=== PATIENT | female | born 1965 | race African-American/Black ===

== ENCOUNTER 2019-06-06 21:12 | Emergency (ER) | payer BC ==
--- NOTE | 2019-06-06 21:58 | ER Document Report ---
ED Medical Screen (RME) - General Chief Complaint: Blood Pressure Problem Stated Complaint: BLOOD PRESSURE PROBLEMS Time Seen by Provider: 06/06/19 21:42 Notes: HPI: 54-year-old female with history of hypertension here for a headache for the last day. Not sudden in onset. Has had similar headaches before in the past. Not the worst headache of her life. States has had a headache like this before in the past when her blood pressure was elevated. she does take amlodipine and HCTZ for her blood pressure and states usually her blood pressure is controlled however today it was 200s systolic and that made her nervous so she came in for evaluation. She states she has been on vacation and had changes in diet and is unsure if that allocated for her elevated blood pressure. She is just here visiting from [place]. He denies prior history of [place] or CVA. She states she has intermittent spots in her vision and blurry vision that has been ongoing for several days. No chest pain, shortness of breath or other change in neurologic. She has not sought care until now. No blood thinners. No other complaints at this time. Has not taken anything for her symptoms. no increased stress. no ams. no trauma or injury. no photophobia or phonophobia. no neck pain or stiffness. ROS neg to include 10 systems, unless mentioned in the hpi. PE:>>>> PHYSICAL_EXAM: GENERAL_APPEARANCE: well_nourished, alert, cooperative, no_acute_distress, no_obvious_discomfort. pleasant, obese middle aged black female, smiling, speaking in full sentences, in no sign of pain or resp distress, VITALS: reviewed, see vital signs table. HEAD: no_swelling\tenderness on the head. normocephalic. atraumatic. no olson signs. no raccoons eyes. EYES: PERRL, EOMI, conjunctiva_clear. no nystagmus. no photophobia NOSE: no_nasal_discharge. MOUTH: (-)decreased moisture. THROAT: no_tonsilar_inflammation, no_airway_obstruction. no_lymphadenopathy NECK: supple, no_neck_tenderness, full rom. full strength. no meningeal signs. BACK: no_back_tenderness. CHEST_WALL: no_chest_tenderness. no overlying skin changes LUNGS: no_wheezing, ctab (-)accessory muscle use, good air exchange bilateral. HEART: normal_rate, normal_rhythm, EXTREMITIES: strength 5/5 in all_extremities, good pulses in all_extremities, no_swelling\tenderness in the extremities, no_edema. full rom. normal gait. good pulses. brisk cap refill. 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 neg ciera sign NEURO: motor and sensation intact, SKIN: warm, dry, good_color, no_rash. MENTAL_STATUS: speech_clear, oriented_X_3, normal_affect, responds_appropriately to questions. MDM: I have ordered labs and initial work-up and patient will be transferred to the main ER for further work-up. I have greeted and performed a rapid initial assessment of this patient. A comprehensive ED assessment and evaluation of the patient, analysis of test results and completion of medical decision making process will be conducted by an additional ED providers. Documentation achieved through voice recording which my lead to some occasional accidental typographical errors. Extensive efforts have been made to proof read documentation to make sure these are the least as possible Temp Pulse Resp BP Pulse Ox 06/06/19 21:25 98.6 F 83 18 173/82 H 94 Category Date Time Status EKG Documentation STAT Care 06/06/19 21:49 Ordered Visual Acuity (ED) NOW Care 06/06/19 21:49 Ordered CHEST 2 VIEWS [RAD] Stat Exams 06/06/19 21:49 Ordered CBC WITH DIFF [HEME] Stat Lab 06/06/19 21:48 Ordered COMPREHENSIVE METABOLIC PANEL [CHEM] Stat Lab 06/06/19 21:48 Ordered MAGNESIUM [CHEM] Stat Lab 06/06/19 21:48 Ordered TROPONIN I [CHEM] Stat Lab 06/06/19 21:48 Ordered URINALYSIS [URIN] Stat Lab 06/06/19 21:48 Uncollected EKG ER ONLY [ER] Stat Oth 06/06/19 21:48 Ordered TRAVEL OUTSIDE OF THE [place] IN LAST 30 DAYS: No - Related Data Allergies/Adverse Reactions: No Known Allergies Allergy (Unverified 06/06/19 21:25) Physical Exam - Vital signs Vitals: Temp Pulse Resp BP Pulse Ox 98.6 F 83 18 173/82 H 94 06/06/19 21:25 06/06/19 21:25 06/06/19 21:25 06/06/19 21:25 06/06/19 21:25 Course - Vital Signs Vital signs: Temp Pulse Resp BP Pulse Ox 98.6 F 83 18 173/82 H 94 06/06/19 21:25 06/06/19 21:25 06/06/19 21:25 06/06/19 21:25 06/06/19 21:25
[2019-06-06 22:30] LABS: APPEARANCE,URINE CLEAR; BILIRUBIN,URINE NEGATIVE (NEGATIVE); COLOR,URINE STRAW; GLUCOSE, URINE NEGATIVE (NEGATIVE); KETONES,URINE NEGATIVE (NEGATIVE); LEUKOCYTE ESTERASE,URINE NEGATIVE (NEGATIVE); NITRITE,URINE NEGATIVE (NEGATIVE); PROTEIN,URINE NEGATIVE (NEGATIVE); URINE SPECIFIC GRAVITY 1.004; UROBILINOGEN,URINE NEGATIVE mg/dL (<2.0)
--- NOTE | 2019-06-06 22:37 | RADIOLOGY REPORT (SQ) ---
EXAM DESCRIPTION: XR CHEST 2 VIEWS COMPLETED DATE/TME: 06/06/2019 21:49 CLINICAL HISTORY: 54 years Female, htn COMPARISON: None. NUMBER OF VIEWS/TECHNIQUE: 2, Frontal, Lateral FINDINGS: Adequate lung volume, clear parenchyma, normal cardiac silhouette, and intact bony thorax. IMPRESSION: No acute cardiopulmonary findings.
[2019-06-06 23:30] LABS: ABSOLUTE BASOPHILS # (AUTO) 0.1 10^3/uL (0.0-0.2); ABSOLUTE EOSINOPHILS # (AUTO) 0.2 10^3/uL (0.0-0.6); ABSOLUTE LYMPHOCYTES (AUTO) 2.2 10^3/uL (0.5-4.7); ABSOLUTE MONOCYTES (AUTO) 0.6 10^3/uL (0.1-1.4); ABSOLUTE NEUT (AUTO) 5.4 10^3/uL (1.7-8.2); BASOPHILS % (AUTO) 1.6 % (0-2); EOSINOPHILS % (AUTO) 2.4 % (0-6); HEMOGLOBIN 14.6 g/dL (12.0-15.5); LYMPHOCYTES % (AUTO) 25.8 % (13-45); MEAN CORPUSCULAR HEMOGLOBIN 26.3 pg (27.0-33.4); MEAN CORPUSCULAR HGB CONC 32.5 g/dL (32.0-36.0); MEAN CORPUSCULAR VOLUME 81 fl (80-97); MONOCYTES % (AUTO) 6.8 % (3-13); PLATELET COUNT 301 10^3/uL (150-450); RED BLOOD COUNT 5.56 10^6/uL (3.72-5.28); RED CELL DISTRIBUTION WIDTH 15.6 % (11.5-14.0); SEGMENTED NEUTROPHILS % (AUTO) 63.4 % (42-78); TOTAL CELLS COUNTED % (AUTO) 100 %; WHITE BLOOD COUNT 8.5 10^3/uL (4.0-10.5)
[2019-06-06 23:37] LABS: ALBUMIN 4.3 g/dL (3.5-5.0); ALKALINE PHOSPHATASE 115 U/L (38-126); ANION GAP 12 (5-19); ASPARTATE AMINO TRANSFERASE 38 U/L (14-36); BILIRUBIN,DIRECT 0.3 mg/dL (0.0-0.4); BILIRUBIN,TOTAL 0.3 mg/dL (0.2-1.3); BLOOD UREA NITROGEN 11 mg/dL (7-20); CALCIUM 10.2 mg/dL (8.4-10.2); CARBON DIOXIDE 29 mmol/L (22-30); CHLORIDE 97 mmol/L (98-107); GLUCOSE 154 mg/dL (75-110); POTASSIUM 3.9 mmol/L (3.6-5.0); TOTAL PROTEIN 7.9 g/dL (6.3-8.2)
[2019-06-07 07:29] VITALS: BP 139/80
--- NOTE | 2019-06-07 10:21 | EKG REPORT ---
SEVERITY:- ABNORMAL ECG - SINUS RHYTHM PROBABLE LEFT ATRIAL ABNORMALITY PROBABLE LEFT VENTRICULAR HYPERTROPHY : Confirmed by: Colin Goode 07-Jun-2019 10:20:39
--- NOTE | 2019-06-08 10:39 | ER Document Report ---
Entered by JASSI PERKINS SCRIBE 06/07/19 0714 Acting as scribe for:RAMO DUGAN MD ED General - General Chief Complaint: Blood Pressure Problem Stated Complaint: BLOOD PRESSURE PROBLEMS Time Seen by Provider: 06/06/19 21:42 Notes: Patient is a 54-year-old female presenting to the emergency department complaining of hypertension. Patient states that she recorded her blood pressure at 230/134. Patient states that she has been drinking vinegar since she recorded it, she reported that to help try and alleviate the problem. Patient states that she is also experiencing nausea, vomiting, and headaches. Patient states that she is currently taking HCTZ patient denies experiencing any chest pain, or shortness of breath. Patient's blood pressure is back within normal limits. TRAVEL OUTSIDE OF THE [place] IN LAST 30 DAYS: No - Related Data Allergies/Adverse Reactions: No Known Allergies Allergy (Unverified 06/06/19 21:25) Past Medical History - General Information source: Patient - Social History Smoking Status: Never Smoker Cigarette use (# per day): No Chew tobacco use (# tins/day): No Frequency of alcohol use: 2-4 beers per night Drug Abuse: None Family History: Reviewed & Not Pertinent Patient has suicidal ideation: No Patient has homicidal ideation: No - Past Medical History Cardiac Medical History: Reports: Hx Hypercholesterolemia, Hx Hypertension Pulmonary Medical History: Reports: Hx Asthma Endocrine Medical History: Reports: Hx Diabetes Mellitus Type 2 Renal/ Medical History: Denies: Hx Peritoneal Dialysis Past Surgical History: Reports: Hx Section Review of Systems - Review of Systems Constitutional: No symptoms reported EENT: No symptoms reported Cardiovascular: No symptoms reported, Other - hypertension Respiratory: No symptoms reported Gastrointestinal: No symptoms reported Genitourinary: No symptoms reported Female Genitourinary: No symptoms reported Musculoskeletal: No symptoms reported Skin: No symptoms reported Hematologic/Lymphatic: No symptoms reported Neurological/Psychological: No symptoms reported -: Yes All other systems reviewed and negative Physical Exam - Vital signs Vitals: Temp Pulse Resp BP Pulse Ox 98.6 F 83 18 173/82 H 94 06/06/19 21:25 06/06/19 21:25 06/06/19 21:25 06/06/19 21:25 06/06/19 21:25 - Notes Notes: Physical Exam: General: Alert, appears well. HEENT: Normocephalic. Atraumatic. PERRL. Extraocular movements intact. Oropharynx clear. Neck: Supple. Non-tender. Respiratory: No respiratory distress. Clear and equal breath sounds bilaterally. Cardiovascular: Regular rate and rhythm. Abdominal: Normal Inspection. Non-tender. No distension. Normal Bowel Sounds. Back: Non-tender. No deformity or step off. Extremities: Moves all four extremities. Upper extremities: Normal inspection. Normal ROM. Lower extremities: Normal inspection. No edema. Normal ROM. Neurological: Normal cognition. AAOx4. Normal speech. Psychological: Normal affect. Normal Mood. Skin: Warm. Dry. Normal color. Course - Re-evaluation Re-evalutation: 06/07/19 07:14 Patient has had several days of intermittent hypertension read by her at her home. She is medically compliant. She is been having intermittent nausea and headaches. She is at baseline at this time with her blood pressure normalized in the emergency department without any intervention. Her labs are within normal limits are nonsignificant. Her EKG showed no concerning findings. I discussed with her to discuss stress her emergency medicine stay with her primary care physician on Sunday. I recommended either an abortive medication when her blood pressure spikes or titration of her current medications. Patient agrees and understands the plan - Vital Signs Vital signs: Temp Pulse Resp BP Pulse Ox 98.8 F 75 18 139/80 H 98 06/07/19 07:27 06/07/19 07:27 06/07/19 07:27 06/07/19 07:27 06/07/19 07:27 - Laboratory Result Diagrams: 06/06/19 23:15 06/06/19 23:15 Laboratory results interpreted by me: 06/06/19 06/06/19 23:15 23:15 RBC 5.56 H MCH 26.3 L RDW 15.6 H Chloride 97 L Glucose 154 H AST 38 H - EKG Interpretation by Id EKG shows normal: Sinus rhythm Rate: Normal Rhythm: NSR - No concerning ST depressions or elevations Discharge - Discharge Clinical Impression: Hypertension Qualifiers: Hypertension type: unspecified Qualified Code(s): I10 - Essential (primary) hypertension Condition: Good Disposition: HOME, SELF-CARE Additional Instructions: Please follow-up with your primary care physician in 2 days as discussed Forms: Elevated Blood Pressure I personally performed the services described in the documentation, reviewed and edited the documentation which was dictated to the scribe in my presence, and it accurately records my words and actions.
== END 2019-06-07 07:29 | disposition home or self-care (01) ==
LOC: ER 21:12
DX: I10 Essential (primary) hypertension (principal); R11.2 Nausea with vomiting, unspecified; R51 Headache; E78.00 Pure hypercholesterolemia, unspecified
CPT/HCPCS: 36415; 71046; 80053; 81001; 83735; 84484; 85025; 93005; 93010; 99284